=== PATIENT | male | born 1950 | race Caucasian/White ===

== ENCOUNTER → 2021-01-05 09:59 | Outpatient (CLI) | payer MEDICARE, OTHER, SELFPAY ==
--- NOTE | ~2021-01-05 | XR_ITS ---
XR wrist LT min 3V DATE: 01/05/2021 10:25 INDICATION: Bilateral osteoarthritis. Bilateral wrist pain. TECHNIQUE: 4 views COMPARISON: None FINDINGS: There is polyarticular osteoarthritis, including triscaphe joint and particularly prominent ly the first carpometacarpal joint. There is osteoarthritic change at the first metacarpophalangeal a nd interphalangeal joints. No fracture or dislocation, periosteal reaction or bone destruction, erosive change or chondrocalcino sis. IMPRESSION: Polyarticular osteoarthritis, involving particularly the first carpometacarpal joint Reviewed, dictated and finalized at location B. IMPRESSION: Polyarticular osteoarthritis, involving particularly the first carp ometacarpal joint
--- NOTE | ~2021-01-05 | XR_ITS ---
XR wrist RT min 3V DATE: 01/05/2021 10:26 INDICATION: Osteoarthritis. Bilateral wrist pain. TECHNIQUE: 4 views COMPARISON: None FINDINGS: There is severe osteoarthritis at the first carpometacarpal joint. There is moderate osteoa rthritis at the triscaphe joint. Osteophytic changes are noted at the first through third of the carp ophalangeal joints. No fracture or dislocation, periosteal reaction or bone destruction, erosive change or chondrocalcino sis. IMPRESSION: Polyarticular osteoarthritis, especially at the first carpometacarpal joint Reviewed, dictated and finalized at location B. IMPRESSION: Polyarticular osteoarthritis, especially at the first carpometacarp al joint
== END ==
PROVIDERS: PCP Family Medicine; Visit Provider Plastic Surgery
DX: M19.031 Primary osteoarthritis, right wrist (principal); M19.032 Primary osteoarthritis, left wrist
CPT/HCPCS: 73110